=== PATIENT | male | born 1995 | race Caucasian/White ===

== ENCOUNTER 2019-06-05 09:53 | Emergency (ER) | payer OTHER, SELFPAY ==
[2019-06-05 09:55] VITALS: BP 184/123; PULSE 117; RESP 17; TEMP 36.8; O2SAT 98; BMI 35.2
--- NOTE | 2019-06-05 10:07 | NURSING ---
NO OLD EKGS
--- NOTE | 2019-06-05 10:14 | RAD_ITS ---
STUDY: X-RAY CHEST REASON FOR EXAM: Male, 24 years old. PATIENT REPORTS CHEST PAIN X 1 WEEK -- STERNAL AND RADIATES INTO LEFT ARM. TECHNIQUE: Single AP portable view of the chest. COMPARISON: None. FINDINGS: The lungs are clear and expanded. There is no demonstrated pleural abnormality. Normal size heart. Normal mediastinum and mata. Normal visualized pulmonary arteries. Normal visualized aortic arch and descending thoracic aorta. Normal visualized thoracic spine. Normal visualized ribs, clavicles, and shoulders. There is no demonstrated abnormality of the visualized soft tissue structures of the upper abdomen. RAD/Chest 1 View (Portable) IMPRESSION: Normal x-ray examination of the chest. Electronically Signed: Good Chung, at 10:43 EST , Service support ,
--- NOTE | 2019-06-05 10:14 | EKG12_ITS ---
Test Reason : CP Blood Pressure : / mmHG Vent. Rate : 107 BPM Atrial Rate : 107 BPM P-R Int : 154 ms QRS Dur : 080 ms QT Int : 314 ms P-R-T Axes : 048 005 038 degrees QTc Int : 419 ms Sinus tachycardia Minimal voltage criteria for LVH, may be normal variant Abnormal ECG Confirmed by KANE CANALES, DEZ ([id number]), online content editor MAYRA SOLIS ([id number]) on 06/07/2019 1:45:11 PM Referred By: SONA/ Confirmed By:DEZ MIDDLETON MD
--- NOTE | 2019-06-05 10:16 | ED.DCSUM_ITS ---
History of Present Illness Chief Complaint: Chest Pain Narrative: Patient presents the emergency department for the evaluation of chest pain. Patient states that about a week ago he began to have a sharp midsternal chest pain that radiated to the left arm. He states the left arm feels different more like an ache. He notes his left leg also feels a little different. 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 He states he has not really felt much like eating for the past week. No nausea vomiting. No recent infections. No dyspnea. Past Medical History - Allergies and Home Meds Allergies/Adverse Reactions: Allergies No Known Allergies Allergy (Verified 06/05/19 09:54) Primary Care Physician: Omari Rico DO [Primary Care Provider] - 1-2 Weeks Review of Systems General: Denies: Chills, Fever, Sweats Eyes: Denies: Visual changes - bilaterally, Diplopia ENT: Denies: Rhinorrhea, Sore throat Cardiovascular: Reports: Chest pain. Denies: Palpitations Respiratory: Denies: Dyspnea, Cough, Dyspnea on exertion Gastrointestinal: Denies: Abdominal pain, Nausea, Vomiting, Diarrhea, Melena, Hematochezia Genitourinary: Denies: Dysuria, Hematuria, Frequency Musculoskeletal: Denies: Back pain, Extremity Pain Skin: Denies: Rash, Wounds Neurological: Reports: Parasthesia. Denies: Headache, Weakness, Numbness Physical Exam Vital Signs/Narrative: Vital Signs Temp Pulse Resp BP Pulse Ox 06/05/19 09:55 98.2 F 117 H 17 184/123 H 98 Inital Vital Signs reviewed: Yes General: Well nourished, Well developed, No Acute Distress Head: Normocephalic, Atraumatic Eyes: Perrl, EOMI ENT: Moist mucous membranes, No rhinorrhea Neck: Supple, Nontender Cardiovascular: Regular rate, Regular rhythm, No murmurs Respiratory: No distress, CTA bilaterally, Chest nontender Abdomen: Soft, Nontender, Nondistended, Normal bowel sounds Back: Nontender, Normal Inspection Extremities: Nontender, No edema Skin: Normal color, No rash Neurological: Alert, Oriented x3, Cranial nerves II-XII grossly intact, Normal Strength, Normal Sensation Psychological: Normal affect, Normal Mood Diagnostic/Tx/Re-eval - Rhythm Strip Rhythm Strip: Sinus Tach Rate: 107 - Medical Decision Making Patient was placed on the monitor and we monitored blood pressure and heart rate throughout his ED course. Heart rate is now down to the high 80s. Blood pressure currently 146/72. EKG is a normal sinus rhythm with no concerning features of ACS. Noted tachycardia. Troponin negative. CBC BMP negative. CT Tami of the chest was performed formed to rule out aortic dissection and this was negative for PE and dissection. At this point patient be discharged home with instructions to follow-up with primary care. He is to monitor his blood pressure and report to them those findings. We will place him on Pepcid twice daily for 14 days. Return if worsening or concerns ED Disposition - Plan for ED Patient: Disposition: Home or Assisted Living Instructions: CHEST PAIN, Uncertain Cause Prescriptions: Famotidine [Pepcid] 20 mg PO BID #28 tab Transmission Status: Pending to [id number] Referrals: Omari Rico DO [Primary Care Provider] - 1-2 Weeks
[2019-06-05 10:28] VITALS: BP 159/103; PULSE 105; RESP 14; O2SAT 95
[2019-06-05 10:42] LABS: Absolute Lymphocyte Count 1.39 X10^3/uL (0.83-4.51); Absolute Neutrophil Count 3.5 X10^3/uL (2.0-7.7); Basophil# 0.03 X10^3/uL; Basophil% 0.6 % (0-1); Eosinophil# 0.02 X10^3/uL; Eosinophils% 0.4 % (0-5); Hematocrit 45.7 % (40-54); Hemoglobin 16.9 g/dL (13.0-16.5); Lymphocyte # 1.39 X10^3/ul (4.0); Lymphocyte % 26.6 % (19-41); Mean Corpuscular Hgb 29.5 pg (27.0-32.0); Mean Corpuscular Volume 79.9 fL (80-94); Mean Platelet Vol. 10.3 fl (6.2-12.0); Monocyte# 0.32 X10^3/uL; Monocyte% 6.1 % (0-10); NRBC Flagged by Analyzer 0 % (0-5); Neutrophil # 3.46 X10^3/uL (2.7-7.7); Neutrophil % 66.1 % (47-70); Platelet Count 223 K/mm3 (150-450); RBC Distribution Width CV 12.5 % (11.6-14.6); RBC Distribution Width SD 35.5 fl (35.1-43.9); Red Blood Count 5.72 M/mm3 (4.6-6.2); White Blood Count 5.2 K/mm3 (4.4-11.0)
[2019-06-05 11:04] LABS: Anion Gap 7 (5-15); BUN 11 mg/dL (7-18); BUN/Creat Ratio 10.8 RATIO (10-20); Calcium,Total 10.3 mg/dL (8.5-10.1); Chloride 108 mmol/L (98-107); Creatinine, Serum 1.02 mg/dL (0.70-1.30); EST Glomerular Filtration Rate 96 mL/min (>60); Est Glom Filt Rate - Afr Amer 116 mL/min (>60); Estimated Creatinine Clearance 108.97 ml/min; Glucose 106 mg/dL (74-106); Potassium 3.6 mmol/L (3.5-5.1); Sodium Level 140 mmol/L (136-145)
--- NOTE | 2019-06-05 11:04 | CT_ITS ---
STUDY: CTA CHEST REASON FOR EXAM: Male, 24 years old. DISSECTION -- CHEST PAIN X1 WEEK-STERNAL and amp; RADIATES TO LEFT ARM RADIATION DOSAGE (If Supplied By Facility): CTDIvol = ( 14.47 ) mGy, DLP = ( 1217.25 ) mGycm TECHNIQUE: The examination was performed with the intravenous administration of 100CC ISOVUE 300. Post-processing of the angiographic images was performed, with multiplanar reformation and 3D reconstruction. Individualized dose optimization techniques were used for this CT. COMPARISON: None. FINDINGS: Small benign-appearing bilateral axillary lymph nodes. Normal enhancement of the main pulmonary artery and right and left pulmonary arteries. Normal enhancement of the bilateral peripheral pulmonary arteries. There is no demonstrated pulmonary embolism. Normal thoracic aorta and visualized great vessels. There is no demonstrated aortic dissection. Normal heart and pericardium. Normal mediastinum. Normal hilar regions. Normal visualized trachea and bronchi. The lungs are well expanded. Normal pulmonary parenchyma. Normal pleura. Normal chest wall structures. Normal osseous structures. Small hiatal hernia. IMPRESSION: Normal CTA chest examination, without a demonstrated pulmonary embolism or arterial dissection. Electronically Signed: Good Chung, at 11:55 EST , Service support , STUDY: CT ABDOMEN AND PELVIS WITH CONTRAST REASON FOR EXAM: Male, 24 years old. DISSECTION -- CHEST PAIN X1 WEEK-STERNAL and amp; RADIATES TO LEFT ARM RADIATION DOSAGE (If Supplied By Facility): CTDIvol = ( 14.47 ) mGy, DLP = ( 1217.25 ) mGycm TECHNIQUE: Transaxial images were obtained from the dome of the diaphragm to the symphysis pubis without oral contrast. 100 ML ISOVUE 370 was administered. Sagittal and coronal images were reconstructed. Individualized dose optimization techniques were used for this CT. COMPARISON: None. FINDINGS: The visualized lung bases are unremarkable. The visualized portions of the heart are within normal limits. There is a 3.3 cm x 3 cm vascular lesion in the left lobe of the liver. This most likely represents an hemangioma. A 1 cm cyst is also seen in the anterior superior aspect of the right lobe of the liver. Normal gallbladder and extrahepatic biliary system. Normal spleen. Normal pancreas. Normal bilateral adrenal glands. Normal right kidney. Normal left kidney. There is a small hiatal hernia. Normal small intestine. Normal colon. The appendix is visualized and appears normal. Normal abdominal aorta. Normal inferior vena cava. Normal retroperitoneum. Distended urinary bladder. There is a small umbilical hernia containing fat. Grade 1 anterior listhesis of L5 on S1 with spondylolysis of the pars interarticularis of the L5 vertebrae. CT/CTA Chest W/WO Contrast IMPRESSION: Findings suggestive of a 3 cm x 3.3 cm hemangioma in the left lobe of the liver. Small hiatal hernia. Distended urinary bladder. Electronically Signed: Good Chung, at 12:05 EST , Service support ,
--- NOTE | 2019-06-05 11:04 | CT_ITS ---
STUDY: CTA CHEST REASON FOR EXAM: Male, 24 years old. DISSECTION -- CHEST PAIN X1 WEEK-STERNAL and amp; RADIATES TO LEFT ARM RADIATION DOSAGE (If Supplied By Facility): CTDIvol = ( 14.47 ) mGy, DLP = ( 1217.25 ) mGycm TECHNIQUE: The examination was performed with the intravenous administration of 100CC ISOVUE 300. Post-processing of the angiographic images was performed, with multiplanar reformation and 3D reconstruction. Individualized dose optimization techniques were used for this CT. COMPARISON: None. FINDINGS: Small benign-appearing bilateral axillary lymph nodes. Normal enhancement of the main pulmonary artery and right and left pulmonary arteries. Normal enhancement of the bilateral peripheral pulmonary arteries. There is no demonstrated pulmonary embolism. Normal thoracic aorta and visualized great vessels. There is no demonstrated aortic dissection. Normal heart and pericardium. Normal mediastinum. Normal hilar regions. Normal visualized trachea and bronchi. The lungs are well expanded. Normal pulmonary parenchyma. Normal pleura. Normal chest wall structures. Normal osseous structures. Small hiatal hernia. IMPRESSION: Normal CTA chest examination, without a demonstrated pulmonary embolism or arterial dissection. Electronically Signed: Good Chung, at 11:55 EST , Service support , STUDY: CT ABDOMEN AND PELVIS WITH CONTRAST REASON FOR EXAM: Male, 24 years old. DISSECTION -- CHEST PAIN X1 WEEK-STERNAL and amp; RADIATES TO LEFT ARM RADIATION DOSAGE (If Supplied By Facility): CTDIvol = ( 14.47 ) mGy, DLP = ( 1217.25 ) mGycm TECHNIQUE: Transaxial images were obtained from the dome of the diaphragm to the symphysis pubis without oral contrast. 100 ML ISOVUE 370 was administered. Sagittal and coronal images were reconstructed. Individualized dose optimization techniques were used for this CT. COMPARISON: None. FINDINGS: The visualized lung bases are unremarkable. The visualized portions of the heart are within normal limits. There is a 3.3 cm x 3 cm vascular lesion in the left lobe of the liver. This most likely represents an hemangioma. A 1 cm cyst is also seen in the anterior superior aspect of the right lobe of the liver. Normal gallbladder and extrahepatic biliary system. Normal spleen. Normal pancreas. Normal bilateral adrenal glands. Normal right kidney. Normal left kidney. There is a small hiatal hernia. Normal small intestine. Normal colon. The appendix is visualized and appears normal. Normal abdominal aorta. Normal inferior vena cava. Normal retroperitoneum. Distended urinary bladder. There is a small umbilical hernia containing fat. Grade 1 anterior listhesis of L5 on S1 with spondylolysis of the pars interarticularis of the L5 vertebrae. CT/CTA Abdomen W/WO Contrast IMPRESSION: Findings suggestive of a 3 cm x 3.3 cm hemangioma in the left lobe of the liver. Small hiatal hernia. Distended urinary bladder. Electronically Signed: Good Chung, at 12:05 EST , Service support ,
[2019-06-05 11:11] VITALS: BP 151/89; PULSE 99; RESP 15; O2SAT 96
[2019-06-05 12:41] VITALS: BP 147/82; BP 147/83; PULSE 86; PULSE 88; RESP 17; O2SAT 98; O2SAT 99
== END 2019-06-05 12:42 | disposition home or self-care (01) ==
PROVIDERS: Emergency Provider Emergency Medicine; PCP Family Medicine
DX: R07.89 Other chest pain (principal); R20.2 Paresthesia of skin
CPT/HCPCS: 71045; 71275; 74175; 80048; 84484; 85025; 93005; 99284; Q9967; A4216